=== PATIENT | female | born 1965 | race American Indian/Alaskan Native ===

== ENCOUNTER 2021-06-29 17:24 | Emergency (ER) | payer BC ==
[2021-06-29 20:06] LABS: Basophils # (Auto) 0.1 K/mm3 (0.0-0.1); Eosinophils # (Auto) 0.1 K/mm3 (0.0-0.4); Eosinophils % (Auto) 1.7 % (0.0-4.3); Hematocrit 35.6 % (30.3-42.9); Lymphocytes # (Auto) 2.1 K/mm3 (1.2-5.4); Lymphocytes % (Auto) 30.1 % (13.4-35.0); Mean Corpuscular HGB Conc 34 % (30-34); Mean Corpuscular Volume 91 fl (79-97); Monocytes # (Auto) 0.4 K/mm3 (0.0-0.8); Monocytes % (Auto) 6.2 % (0.0-7.3); Platelet Count 214 K/mm3 (140-440); Red Blood Count 3.93 M/mm3 (3.65-5.03)
[2021-06-29 20:10] LABS: Bilirubin,Urine NEG (Negative); Blood,Urine NEG (Negative); Color,Urine Yellow (Yellow); Protein,Urine <15 mg/dL mg/dL (Negative); Urobilinogen,Urine < 2.0 mg/dL (<2.0); WBC,Urine < 1.0 /HPF (0.0-6.0)
[2021-06-29 20:26] LABS: Alanine Aminotransferase 65 units/L (7-56); Albumin 4.4 g/dL (3.9-5); BUN/Creatinine Ratio 12; Blood Urea Nitrogen 13 mg/dL (7-17); Calcium 9.7 mg/dL (8.4-10.2); Hemolysis Index 11
[2021-06-29 20:33] VITALS: BP 163/82
[2021-06-29] MEDS ORDERED: SODIUM CHLORIDE 0.9% 1000 ML 1,000 ML IV ONE (23:11)
--- NOTE | 2021-06-30 02:31 | Emergency Department Report ---
ED General Adult HPI - General Chief complaint: Hypoglycemia Stated complaint: HYPREGLYCEMIA Source: patient Mode of arrival: Ambulatory Limitations: No Limitations - History of Present Illness Initial comments: Patient is a 56-year-old -[place] female with a history of hypertension and [id number] diabetes who presents to the ED with complaint of persistently elevated blood sugar and lightheadedness for the last 2 days but worse in the last 12 hours. Patient states that she usually takes Metformin 1000 mg twice a day and glipizide 5 mg daily. Patient states that she has only taken her medications once in the last 12 hours. Patient states that in the last 3 days she has been eating only fruits and thought that this might help control her sugar. Patient denies chest pain, shortness of breath, syncope, dizziness, change in vision, nausea and vomiting or diarrhea, abdominal pain, dysuria, urinary frequency and urgency, fever and chills, sore throat or change in vision. MD Complaint: Lightheadedness, hyperglycemia -: Sudden, hour(s) (12) Location: head Radiation: non-radiation Severity scale (0 -10): 0 Consistency: constant Improves with: none Worsens with: eating Associated Symptoms: denies other symptoms, malaise. denies: confusion, chest pain, cough, diaphoresis, fever/chills, headaches, loss of appetite, nausea /vomiting, rash, seizure, shortness of breath, weakness, other Treatments Prior to Arrival: none - Related Data Allergies Allergy/AdvReac Type Severity Reaction Status Date / Time No Known Allergies Allergy Unverified 06/29/21 19:30 ED Review of Systems ROS: Stated complaint: HYPREGLYCEMIA Other details as noted in HPI Constitutional: malaise, other (Elevated blood sugar). denies: chills, fever Eyes: denies: eye pain, eye discharge, vision change ENT: denies: ear pain, throat pain Respiratory: denies: cough, shortness of breath, wheezing Cardiovascular: denies: chest pain, palpitations Endocrine: no symptoms reported, increased thirst Gastrointestinal: denies: abdominal pain, nausea, vomiting, diarrhea Genitourinary: denies: urgency, dysuria, discharge Musculoskeletal: denies: back pain, joint swelling, arthralgia Skin: denies: rash, lesions Neurological: denies: headache, weakness, paresthesias Psychiatric: denies: anxiety, depression Hematological/Lymphatic: denies: easy bleeding, easy bruising ED Past Medical Hx - Past Medical History Previous Medical History?: Yes Hx Hypertension: Yes Hx Diabetes: Yes - Surgical History Past Surgical History?: No - Social History Smoking Status: Never Smoker Substance Use Type: None ED Physical Exam - General Limitations: No Limitations General appearance: alert, in no apparent distress - Head Head exam: Present: atraumatic, normocephalic, normal inspection - Eye Eye exam: Present: normal appearance, PERRL, EOMI Pupils: Present: normal accommodation - ENT ENT exam: Present: normal exam, normal orophraynx, mucous membranes moist, TM's normal bilaterally, normal external ear exam - Neck Neck exam: Present: normal inspection, full ROM - Respiratory Respiratory exam: Present: normal lung sounds bilaterally. Absent: respiratory distress, wheezes, rales, rhonchi, chest wall tenderness, accessory muscle use, decreased breath sounds, prolonged expiratory - Cardiovascular Cardiovascular Exam: Present: regular rate, normal rhythm, normal heart sounds. Absent: systolic murmur, diastolic murmur, rubs, gallop - GI/Abdominal GI/Abdominal exam: Present: soft, normal bowel sounds. Absent: distended, tenderness, guarding, rebound, rigid, hyperactive bowel sounds, hypoactive bowel sounds, organomegaly - Extremities Exam Extremities exam: Present: normal inspection, full ROM, normal capillary refill - Back Exam Back exam: Present: normal inspection, full ROM. Absent: tenderness, CVA tenderness (L), muscle spasm, paraspinal tenderness, vertebral tenderness - Neurological Exam Neurological exam: Present: alert, oriented X3, CN II-XII intact, normal gait - Psychiatric Psychiatric exam: Present: normal affect, normal mood - Skin Skin exam: Present: warm, dry, intact, normal color. Absent: rash ED Course Vital Signs 06/29/21 19:33 Temperature 98.8 F Pulse Rate 93 H Respiratory 12 Rate Blood Pressure 163/82 O2 Sat by Pulse 100 Oximetry ED Medical Decision Making - Lab Data Result diagrams: 06/29/21 19:45 06/29/21 19:45 - Medical Decision Making This is a 56-year-old -[place] female with a history of hypertension and [id number] diabetes who presents to the ED with complaint of persistently elevated blood sugar and lightheadedness for the last 2 days but worse in the last 12 hours. Patient states that she usually takes Metformin 1000 mg twice a day and glipizide 5 mg daily. Patient states that she has only taken her medications once in the last 12 hours. Patient states that in the last 3 days she has been eating only fruits and thought that this might help control her sugar. In the ED, patient is alert and oriented x3 and is not in any distress. Patient is hemodynamically stable. Lab test results were reviewed and showed hyperglycemia of 386 mg/dL, hyponatremia 132 mmol/L, hypochloremia of 90.2 mmol/L, AST of 64, ALT of 65 and alk phos of 173. Patient received normal saline 1 L IV bolus x1 in the ED. On reevaluation, patient blood sugar improved to 216 mg/dL. Patient is hemodynamically stable and felt better. Patient was therefore discharged home and advised to continue taking her medications and to follow-up with her primary care physician in 5 to 7 days for reevaluation or return to the ED immediately if symptoms get worse. - Differential Diagnosis Hyperglycemia; dehydration; anxiety; hyponatremia Critical care attestation.: If time is entered above; I have spent that time in minutes in the direct care of this critically ill patient, excluding procedure time. ED Disposition Clinical Impression: Hyperglycemia due to type 2 diabetes mellitus Qualifiers: Diabetes mellitus senior living insulin use: without senior living use Qualified Code(s): E11.65 - Type 2 diabetes mellitus with hyperglycemia Disposition: 01 HOME / SELF CARE / HOMELESS Is pt being admited?: No Does the pt Need Aspirin: No Condition: Stable Instructions: Diabetes Mellitus Type 2 in Adults (ED), Hyperglycemia, Easy -to-Read, Type 2 Diabetes Mellitus, Self Care, Adult, [id number] Additional Instructions: All lab test results were reviewed and are all nonactionable except for elevated liver enzymes as well as hyperglycemia. On reevaluation, your blood sugar level has improved significantly with IV fluids. Therefore take your medications and drink plenty of fluids. Follow-up with your primary care physician in 5 to 7 days for reevaluation. Return to the ED immediately if symptoms get worse. Referrals: REAGAN KELLY APRN-BC [Primary Care Provider] - 3-5 Days Forms: Work/School Release Form(ED) Time of Disposition: 02:33 Print Language: [id number]
== END 2021-06-30 03:30 | disposition home or self-care (01) ==
LOC: ED 17:24
DX: E11.65 Type 2 diabetes mellitus with hyperglycemia (principal); I10 Essential (primary) hypertension
CPT/HCPCS: 36415; 80053; 81001; 82962; 85025; 96360; 99283; J7030